=== PATIENT | female | born 1970 | race Caucasian/White ===

== ENCOUNTER → 2016-11-18 | Outpatient (CLI) | payer BC ==
[~2016-11-18] MED LIST: SERTRALINE25 MG PO
--- NOTE | 2016-11-18 13:20 | RADIOLOGY REPORT PS360 ---
US RUQ-(ABD LTD)1ORGAN/QUAD/FU HISTORY: Right upper quadrant pain RUW PAIN, STONES SEEN ON CT ORDERING PHYSICIAN: Donis Rutledge MD PATIENT AGE: 46 years COMPARISON: None FINDINGS: PANCREAS:Unremarkable. No obvious mass or abnormal fluid collection. No ductal dilatation LIVER:No focal liver lesions demonstrated. Homogeneous echogenicity. No intrahepatic biliary ductal dilatation evident RIGHT KIDNEY:Unremarkable. Normal size and echogenicity. No hydronephrosis GALLBLADDER:Stone is present in the gallbladder measuring proximal 6 mm. No gallbladder wall thickening or pericholecystic fluid or biliary dilatation evident. Common bile duct 2 mm. IMPRESSION: Cholelithiasis
== END ==
LOC: RAD 07:45
DX: R10.11 Right upper quadrant pain (principal); K80.00 Calculus of gallbladder with acute cholecystitis without obstruction